=== PATIENT | male | born 1980 | race Caucasian/White ===

== ENCOUNTER 2021-03-22 15:26 | Outpatient (CLI) | payer BC, SELFPAY ==
--- NOTE | ~2021-03-22 | CT_ITS ---
EXAMINATION: CT abdomen pelvis w con EXAM DATE: 03/22/2021 16:44 INDICATION: Abdominal pain, appendicitis RT lower abd pain since 03/20/21. TECHNIQUE: Spiral CT of the abdomen and pelvis was performed following intravenous injection of 100 m L Omnipaque 350. Axial, coronal and sagittal images of the abdomen and pelvis were reviewed. The do se-length product (DLP) for this examination was 1710.55 mGy-cm. The exposure was tailored according to patient size (auto mA exposure control), and iterative reconstruction (ASIR) was used as addition al dose reduction technique. There is no prior study for comparison. FINDINGS: The liver, spleen, adrenal glands and pancreas are unremarkable. Gallbladder is unremarkab le. No biliary obstruction. Portal and splenic veins are patent. Kidneys enhance symmetrically. T here is no hydronephrosis. The prostate is unremarkable. The bladder is unremarkable. There is no retroperitoneal or pelvic lymphadenopathy. Small bilateral inguinal fat-containing hernias. The appendix is dilated up to 1.2 cm with moderate adjacent inflammation, but no abscess or perforati on suspected. Acute appendicitis. The stomach and small bowel are unremarkable. There is expected a mount of colonic stool. No free intraperitoneal gas. The heart is normal in size. There are no p ericardial or pleural effusions. The lung bases are unremarkable. The bones are unremarkable. IMPRESSION: Acute uncomplicated appendicitis. I discussed appendicitis with Rosmery Davidson NP at 03/22/2021 16:55 CDT. Reviewed, dictated and finalized at location A.
[2021-03-22 15:41] LABS: Basophils Absolute Auto 0.02 K/mm3 (0.00-0.10); Basophils Percent Auto 0.3 % (0.0-1.0); Eosinophils Absolute Auto 0.11 K/mm3 (0.02-0.50); Eosinophils Percent Auto 1.4 % (1.0-6.0); Hematocrit 39.5 % (40.0-54.0); Hemoglobin 13.7 g/dL (14.0-18.0); Immature Granulocyte Absolute 0.03 K/mm3 (0.00-0.00); Immature Granulocyte Percent A 0.4 % (0.0-0.0); Lymphocytes Absolute Auto 1.51 K/mm3 (1.10-4.50); Lymphocytes Percent Auto 19.8 % (18.0-42.0); Mean Corpuscular HGB Conc 34.7 g/dL (32.0-36.0); Mean Corpuscular Hemoglobin 32.6 pg (27.0-31.0); Mean Platelet Volume 9.4 fl (8.7-11.0); Monocytes Absolute Auto 0.89 K/mm3 (0.10-0.90); Monocytes Percent Auto 11.7 % (2.0-11.0); Neutrophils Absolute Auto 5.1 K/mm3 (1.7-7.2); Neutrophils Percent Auto 66.4 % (50.0-70.0); Platelet Count Result 187 K/mm3 (150-420); Red Cell Distribution Width 12.9 % (11.6-14.4); White Blood Count 7.6 K/mm3 (4.8-10.8)
[2021-03-22 16:00] LABS: Alanine Aminotransferase 57 U/L (16-63); Alkaline Phosphatase 55 U/L (46-116); Amylase 33 U/L (25-115); Anion Gap 10 mmol/L (8-16); Aspartate Amino Transferase 25 U/L (15-37); Bilirubin,Total 0.6 mg/dL (0.00-1.00); Blood Urea Nitrogen 10 mg/dL (7-18); Calcium 8.3 mg/dL (8.5-10.1); Carbon Dioxide 28 mmol/L (21-32); Chloride 104 mmol/L (98-108); Estimated Glomerular Filt Rate > 60; Glucose 97 mg/dL (70-99); Lipase 107 U/L (73-393); Osmolality Calculated 293 mOsm/kg (285-295); Potassium 3.9 mmol/L (3.5-5.1); Sodium 142 mmol/L (136-145); Total Protein 7.7 g/dL (6.4-8.2)
== END 2021-03-22 15:27 | disposition home or self-care (01) ==
PROVIDERS: PCP Internal Medicine; Visit Provider Nurse Practitioner Family
DX: K35.80 Unspecified acute appendicitis (principal); R10.9 Unspecified abdominal pain
CPT/HCPCS: 36415; 74177; 80053; 82150; 83690; 85025; Q9967

== ENCOUNTER 2021-03-22 18:06 | Observation (INO) | payer BC, SELFPAY ==
[2021-03-22] VITALS (7 sets, daily range): BP systolic 130–174; BP diastolic 60–114; PULSE 60–82; RESP 16–18; TEMP 36.1–36.9; O2SAT 98–100; BMI 43.4
--- NOTE | 2021-03-22 18:30 | ECG_ITS ---
Measurements Intervals [place] Rate: 75 P: 4 SD: 175 QRS: 1 QRSD: 117 T: 56 QT: 368 QTc: 413 Interpretive Statements SINUS RHYTHM INTRAVENTRICULAR CONDUCTION DELAY BASELINE WANDER- v3 BORDERLINE ECG Electronically Signed On 03-22-2021 20:24:03 CDT by Doyle Leyva D.O.
--- NOTE | 2021-03-22 18:31 | ED.ABDPAIN ---
HPI - Abdominal Pain General Chief Complaint: Abdominal Pain Stated Complaint: Positive CT of ABD at [facility] Time Seen by Provider: 03/22/21 18:20 Source: patient and RN notes reviewed Mode of arrival: ambulatory Limitations: no limitations History of Present Illness HPI narrative: This is a 41 year old male with history of hypertension who presents for evaluation of acute appendicitis. Patient developed right lower abdominal pain on Monday. He states his pain has been intermittent and he has not taken anything for pain. He was evaluated by his primary care provider who ordered outpatient CT abdomen and pelvis with labs. His outpatient CT shows uncomplicated appendicitis. He denies nausea, vomiting, fever or chills. He rates his pain 05/31. Related Data Home Medications Medication Instructions Recorded Confirmed losartan-hydrochlorothiazide tablet 03/22/21 Allergies Allergy/AdvReac Type Severity Reaction Status Date / Time No Known Allergies Allergy Unverified 10/17/15 23:23 Review of Systems Review of Systems: All systems reviewed & are unremarkable except as noted in HPI and below PMFSH Past Medical History Medical History (Updated 03/22/21 @ 19:14 by Erica Pierce MD) Hypertension Surgical History Surgical History (Updated 03/22/21 @ 18:36 by Erica Pierce MD) No significant past surgical history Social History Social History (Updated 03/22/21 @ 18:36 by Erica Pierce MD) Smoking status: Never smoker Alcohol intake: current Drinks per week: 24 Substance use: never Spiritual care concerns: No Exam Const: General: no acute distress and alert Orientation/consciousness: patient oriented x3 Eyes: EOM: EOMs intact bilaterally Chest: Chest palpation & inspection: normal inspection of the chest Resp: Effort & Inspection: normal respiratory effort and no retractions Auscultation: clear to auscultation bilaterally Cardio: Rate: regular rate Rhythm: regular rhythm Heart sounds: no murmurs GI: GI Palp: Yes Soft to palpation, Yes Tenderness to palpation present (GI) (RLQ) and No Guarding due to palpation present (GI) Auscultation: normal bowel sounds Back/Spine/Pelvis: Back: no CVA tenderness Skin: General skin exam: normal color Rashes: no rashes Neuro: General: patient oriented x3, moves all extremities and CN's II-XI intact bilaterally Extrem: General: normal to inspection Psych: Mental Status: mental status grossly normal Affect: normal affect Course Consultations Consultation #1: I Discussed case with Dr. Dudley and he accepts patient to service. Agrees with starting zosyn Date: 03/22/21 Time: 19:13 Vital Signs Vital signs: Vital Signs Temperature 98.4 F 03/22/21 18:29 Pulse Rate 70 03/22/21 18:29 Respiratory Rate 18 03/22/21 18:29 Blood Pressure 174/114 H 03/22/21 18:29 Pulse Oximetry 100 03/22/21 18:29 Temperature 97 F L 03/22/21 21:35 Pulse Rate 60 03/22/21 21:35 Respiratory Rate 18 03/22/21 21:35 Blood Pressure 130/60 03/22/21 21:35 Pulse Oximetry 98 03/22/21 21:35 MDM - Abdominal Pain Lab Data Attestation: I reviewed the patient's lab results. Discharge Plan Discharge Clinical Impression: Acute appendicitis Qualifiers: Acute appendicitis type: other Qualified Code(s): K35.890 - Other acute appendicitis without perforation or gangrene Patient Disposition: Still a Patient Condition: Stable
[2021-03-22] MEDS: LOSARTAN POTASSIUM 100 MG TABLET PO (19:27)
[2021-03-22] MEDS: SODIUM CHLORIDE 0.9% IV 1,000 ML 125 ML IV CONT (21:14)
--- NOTE | 2021-03-22 21:39 | PC.NURSE ---
This patient, Delfino Eaton, was admitted to Medical Room 348-01. Patient/family oriented to hospital policies and general routines including ID bracelet, bed and alarms, visiting hours, pain management, procedures, bathroom and other care routines, personal items, smoking policy, room service/diet, and visiting hours. Information on how to activate the Rapid Response Team has been discussed. Patient/Family are encouraged to report perceived risks to care and to ask questions if they do not understand what they are told or what they should do.
[2021-03-23] VITALS (14 sets, daily range): BP systolic 118–168; BP diastolic 60–97; PULSE 59–95; RESP 14–18; TEMP 36.1–37.2; O2SAT 94–100
[2021-03-23] MEDS: SODIUM CHLORIDE 0.9% IV 1,000 ML 125 ML IV CONT (05:08)
--- NOTE | 2021-03-23 08:54 | PM.IMHP ---
H&P: HPI History of Present Illness Date/Time: 03/23/21 08:54 Chief Complaint: Right lower quadrant pain Narrative: this is a 41-year-old man who presented to the emergency department last night with right lower quadrant pain that started 2 days prior. He states that he began having shooting lower abdominal pains on Monday and pain began progressing throughout the day. He thought about going to the emergency department Monday night, but was able to get some rest and Monday woke up feeling a little bit better. He then continued to have abdominal pain Monday and called his primary care physician on Monday morning. He was able to see his PCP in the morning and lab work and a CT scan was ordered. CT showed evidence of acute appendicitis, therefore he was directed to go to the emergency department. He denies any fevers or chills. He did state he felt a little warm yesterday. He denies any change in bowel habits. He denies any nausea or vomiting. He has never had any symptoms like this before. Review of Systems Review of Systems: All systems reviewed & are unremarkable except as noted in HPI and below Constitutional: Constitutional: Denies chills and Denies fever(s) Eyes: Eyes: Denies change in vision ENT: Denies hearing loss, Denies neck pain and Denies sore throat Cardiovascular: Cardiovascular: Denies chest pain and Denies dyspnea Respiratory: Respiratory: Denies cough, Denies dyspnea and Denies wheezing Gastrointestinal: Gastrointestinal: Reports as per HPI Genitourinary: Genitourinary: Denies hematuria and Denies dysuria Musculoskeletal: Musculoskeletal: Denies arthralgias, Denies joint swelling and Denies neck pain Allergic/Immunologic: Allergic/Immunologic: Denies wheezing [facility] Past Medical History Medical History (Updated 03/23/21 @ 09:01 by Kam Dudley DO) Hypertension Surgical History Surgical History No significant past surgical history Family History Family History (Updated 03/23/21 @ 08:58 by Kam Dudley DO) Father Hypertension Social History Social History Smoking status: Never smoker Alcohol intake: current Drinks per week: 24 Substance use: never Spiritual care concerns: No Meds Home Medications and Allergies Home Medications Medication Instructions Recorded Confirmed Type losartan-hydrochlorothiazide tablet 03/22/21 History Allergies Allergy/AdvReac Type Severity Reaction Status Date / Time No Known Allergies Allergy Unverified 10/17/15 23:23 Vital Signs Vital Signs - 24 hr 03/22/21 18:29 03/22/21 18:45 03/22/21 19:09 Temperature 36.9 C Pulse Rate 70 69 Respiratory Rate 18 16 Blood Pressure 174/114 H 148/88 H Pulse Oximetry 100 99 99 03/22/21 19:15 03/22/21 19:30 03/22/21 19:31 Temperature Pulse Rate 82 Respiratory Rate 16 Blood Pressure 138/87 Pulse Oximetry 98 98 98 03/22/21 21:35 03/23/21 05:59 03/23/21 08:44 Temperature 36.1 C L 36.4 C Pulse Rate 60 66 Respiratory Rate 18 17 Blood Pressure 130/60 148/79 H Pulse Oximetry 98 98 96 Exam Const: General: alert; No acute distress Orientation/consciousness: patient oriented x3 Limitations: no limitations HENMT: Head: normocephalic and atraumatic Ears: hearing grossly normal bilaterally General nose exam: Normal external nose present and Normal nares present Mouth: Yes Normal oral and palatal mucosa present and Yes moist mucous membranes Eyes: General: appearance normal, both eyes and all related structures Conjunctivae: conjunctivae normal Sclera: sclerae normal Pupils: Equal, round and reactive pupils present EOM: EOMs intact bilaterally Neck: Neck: normal visual inspection, full ROM, no lymphadenopathy, supple and no JVD Lymphatic: no lymphadenopathy noted Chest: Chest palpation & inspection: normal inspection of the
--- NOTE | 2021-03-23 13:36 | PC.NURSE ---
pt down in OR
[2021-03-23] MEDS: LACTATED RINGERS 1,000 ML 30 ML IV CONT (13:50)
--- NOTE | 2021-03-23 13:50 | WPDANESEPPF ---
Anes - Initial Pre Proc Eval Procedure: Operation Date: 03/23/21 14:30 Proposed Procedures p Laparoscopic Appendectomy - Kam Dudley DO Date/Time: 03/23/21 13:50 Surgeon: Kam Dudley DO Pre Op Diagnosis: Acute Appendicitis Patient Data Age: 41 Gender: M Height: 1.8 m Weight: 141.3 kg Last Vital Signs Temp 36.4 C 03/23/21 05:59 Pulse 66 03/23/21 05:59 Resp 17 03/23/21 05:59 BP 148/79 H 03/23/21 05:59 Pulse Ox 96 03/23/21 08:44 Allergies Allergy/AdvReac Type Severity Reaction Status Date / Time No Known Allergies Allergy Unverified 10/17/15 23:23 Home Medications Medication Instructions Recorded Confirmed Type losartan-hydrochlorothiazide tablet 03/22/21 History Patient hx anesthesia problems: none Family hx anesthesia problems: none Results Review: All pre-operative results and documents have been reviewed as part of the pre-operative evaluation. PMFSH Past Medical History Medical History Hypertension Surgical History Surgical History No significant past surgical history Family History Family History Father Hypertension Social History Social History Smoking status: Never smoker Alcohol intake: current Drinks per week: 24 Substance use: never Spiritual care concerns: No Anes - Eval Final PreProcedure Day of Procedure 03/23/21 13:50 Patient weight: morbidly obese Heart: regular rate and rhythm Lungs: clear to auscultation Airway: Mallampati scale class II Neurological: alert and oriented Last oral intake: >/= 8 hours ASA classification: III Emergent: yes Anesthetic plan: proceed Anesthesia type and monitoring: general ETT and standard monitoring Results Review: All pre-operative results and documents have been reviewed as part of the pre-operative evaluation. Informed Consent: The patient's anesthetic plan and its attendant risks and benefits were discussed with the patient/family/POA. Questions were solicited and answers provided to the satisfaction of the patient/family/POA.
--- NOTE | 2021-03-23 13:57 | WPDHPUPDATE1 ---
History and Physical Update Update Date/Time: 03/23/21 13:57 History and Physical has been reviewed, including an updated exam of the patient. There are NO changes in the patient's condition. Risks, benefits, and alternatives have been discussed and questions answered. Patient agrees to proceed with procedure.
[2021-03-23] MEDS: BUPIVACAINE HCL 0.5% PF 30 ML VIAL INFILTRATE (14:23)
--- NOTE | 2021-03-23 15:42 | W.PM.PROC2 ---
Procedure Note - Detailed Date of Procedure 03/23/21 Pre-op Diagnosis Acute Appendicitis Post-op Diagnosis other (Acute perforated appendicitis) Procedure Performed Laparoscopic appendectomy Surgeon Kam Dudley, Anesthesia general and local (0.5% bupivicaine with epinephrine) Indications This is a 41-year-old man who had presented to the emergency department last night with right lower quadrant pain for the past 3 days. His pain started in the lower abdomen and progressively worsened. He denied any fevers or chills. He had never experienced pain like this in the past. He had workup through his PCP which included CBC and CT of his abdomen and pelvis. He was noted to have a normal white blood count but CT showed evidence of acute appendicitis. He was then admitted through the emergency department and started on broad-spectrum IV antibiotics. Discussions were made with the patient about treatment options and decision was made to proceed with laparoscopic appendectomy, possible open. Findings Laparoscopic appendectomy was performed. The patient had a very indurated appendix with multiple adhesions around the appendix and mesoappendix. The appendix was very friable and tore with manipulation. The base of the appendix was very indurated and it was somewhat difficult to identify initially. With careful dissection I was able to eventually identify the base of the appendix. I was able to staple across the base of the appendix with a blue load stapler. I also used some hook electrocautery on part of the mesoappendix until I was able to come across the mesoappendix with a white stapler. The surgery was very technically difficult and took time to take all of the adhesions in induration down around the base of the appendix. I chose to place a drain along the right lower quadrant and pelvis to monitor for any further signs of infection. There did not appear to be any significant purulence drainage but the appendix did appear perforated. The total operating time was 76 minutes requiring about 60 minutes of careful adhesiolysis around the base of the appendix. The surgery was about twice as long as a straightforward laparoscopic appendectomy. Description of Procedure Procedure as well as risks, benefits, and alternatives were explained to the patient. The patient agreed to proceed. Written consent was obtained and placed in chart prior to procedure. The patient was brought back to surgical suite. He was placed supine on operating table. Time-out was done to confirm the patient and procedure. The patient was then intubated by the Anesthesia Department. His abdomen was prepped and draped in sterile fashion using chlorhexidine prep. A 5 mm incision was made just to the left of the patient's umbilicus and a 5 mm Optiview trocar was advanced through the abdominal layers under direct visualization. Once inside the peritoneal cavity, carbon dioxide insufflation was used to create a pneumoperitoneum. The camera was inserted and the abdomen was inspected. No immediate abnormalities were identified. The patient was then placed in slight Trendelenburg position and rotated to the left. A 5 mm incision was made in the suprapubic region in midline and a 5 mm trocar was inserted under direct visualization. A 12 mm incision was made in the left lower quadrant and a 12 mm trocar was inserted under direct visualization. The right lower quadrant was carefully inspected. The cecum was identified and then this was traced back to the appendix. The appendix was identified and grasped at the mesoappendix and lifted anteriorly. Careful blunt dissection was carried out at the base of the appendix through the mesoappendix using a [place] grasper. An Endo-ALICE 45 mm blue load stapler was then advanced across the base of the appendix and clamped and fired. A white reload was then clamped across the mesoappendix and fired. This freed up our appendix completely. It was then pl
[2021-03-23] MEDS: fentaNYL CITRATE INJ (*CRX) 100 MCG/2 ML VIAL 25 MCG IV PUSH ×2 (16:31→16:35)
--- NOTE | 2021-03-23 16:59 | SUR.PHASEI ---
1659 - dr. talbert at bedside talking with pt
[2021-03-23] MEDS: HYDROcodone/acetaminophen (*CRX) 10-325 MG TABLET 1 TAB PO (17:40)
[2021-03-23] MEDS: MORPHINE SULFATE (*CRX) 2 MG/ML INJ IV PUSH (18:30)
[2021-03-23] MEDS: MORPHINE SULFATE (*CRX) 4 MG/ML INJ IV PUSH (20:30)
[2021-03-23] MEDS: ONDANSETRON INJ 4 MG/2 ML VIAL IV PUSH (20:35)
[2021-03-24 03:02] VITALS: BP 111/57; PULSE 79; RESP 16; TEMP 36.7; O2SAT 94
[2021-03-24] MEDS: HYDROcodone/acetaminophen (*CRX) 10-325 MG TABLET 1 TAB PO ×2 (05:29→13:05)
[2021-03-24 05:37] LABS: Hematocrit 38.6 % (42.0-52.0); Hemoglobin 13.4 g/dL (14.0-18.0); Mean Corpuscular HGB Conc 34.7 g/dl (32-36); Mean Corpuscular Volume 95.1 fl (80-100); Mean Platelet Volume 9.1 fl (7.4-10.4); Platelet Count Result 211 k/mm3 (150-375); Red Blood Count 4.06 M/mm3 (4.6-6.20); Red Cell Distribution Width 13.1 % (11.5-14.5); White Blood Count 11.9 K/mm3 (4.5-10.0)
[2021-03-24 05:47] LABS: Anion Gap 11 mmol/L (8-16); Blood Urea Nitrogen 10 mg/dL (9-20); Calcium 8.5 mg/dL (8.4-10.2); Carbon Dioxide 23 mmol/L (22-30); Chloride 103 mmol/L (98-107); Estimated CRCL calculation 155 ml/min; Estimated Glomerular Filt Rate > 60; Glucose 152 mg/dL (65-110); Potassium 4.2 mmol/L (3.4-5.0); Sodium 137 mmol/L (137-145)
[2021-03-24 07:02] VITALS: BP 126/83; PULSE 73; RESP 18; TEMP 36.7; O2SAT 96
--- NOTE | 2021-03-24 09:24 | WPDANESPN ---
Anes - Prog Note Post-Op Date/Time: 03/24/21 09:24 Cardiovascular status: normal Respiratory status: normal Airway patency: baseline Mental status: baseline Post-Op hydration status: normal Vital Signs: Last Vital Signs Temp 36.7 C 03/24/21 07:02 Pulse 73 03/24/21 07:02 Resp 18 03/24/21 07:02 BP 126/83 03/24/21 07:02 Pulse Ox 96 03/24/21 07:02 Pain Score (VAS): 0 I/O: Intake & Output 03/23/21 03/24/21 03/24/21 23:59 07:59 15:59 Intake Total 200 50 120 Output Total 530 510 Balance -330 -460 120 Laboratory Tests 03/24/21 05:25 03/24/21 05:25 03/24/21 03/24/21 05:25 05:25 WBC 11.9 H RBC 4.06 L Hgb 13.4 L Hct 38.6 L MCV 95.1 MCH 33.0 MCHC 34.7 RDW 13.1 Plt Count 211 MPV 9.1 Sodium 137 Potassium 4.2 Chloride 103 Carbon Dioxide 23 Anion Gap 11 BUN 10 Creatinine 0.80 Estim Creat Clear Calc 155 Estimated GFR > 60 Glucose 152 H Calcium 8.5 Post-procedural complaints: none Patient Feedback: Patient satisfied with anesthetic care.
[2021-03-24] MEDS: HYDROcodone/acetaminophen (*CRX) 5-325 MG TABLET 1 TAB PO (09:52)
[2021-03-24] MEDS: ENOXAPARIN 40 MG/0.4 ML SYRINGE SUB-Q (09:53)
[2021-03-24 11:12] VITALS: BP 129/68; PULSE 80; RESP 18; TEMP 35.4; O2SAT 98
--- NOTE | 2021-03-24 13:16 | PM.DS ---
DS: Admitting Diagnosis Discharge Date 03/24/2021 Admitting Diagnosis acute appendicitis DS: Discharge Diagnosis Discharge Diagnosis (1) Acute perforated appendicitis: Code(s): K35.32 - Acute appendicitis with perforation and localized peritonitis, without abscess Status: Acute (2) Hypertension: Qualifiers: Hypertension type: primary hypertension Qualified Code(s): I10 - Essential (primary) hypertension Code(s): I10 - Essential (primary) hypertension Status: Acute (3) Adult BMI 40.0-44.9 kg/sq m: Code(s): Z68.41 - Body mass index [BMI] 40.0-44.9, adult Status: Acute DS: Summary Hospital Course Reason for hospitalization: acute appendicitis Hospital Course: this is a 41-year-old man who presented to the emergency department 03/22/2021 with right lower quadrant pain that started about 3 days prior. He saw his PCP on 03/22 and outpatient labs and a CT abdomen and pelvis was performed. His lab workup was normal, but CT showed evidence of inflammatory changes at the appendix. He was then referred to the emergency department for further treatment. Patient was admitted and started on IV Zosyn. On 03/23/2021 he underwent laparoscopic appendectomy. The appendix was very difficult to remove due to inflammatory reaction around the entire base of the appendix. The appendix also appeared to be perforated and tore easily with manipulation. A 19 round Jt drain was placed at the time of surgery. He was then returned to the surgical floor postoperatively and was continued on IV antibiotics. NATHANIEL drain remained serosanguineous. On postop day 1 he was remaining hemodynamically stable and pain control was improving. He was tolerating a regular diet and remained afebrile. NATHANIEL drain was removed before discharge. He was discharged on 03/24/2021. Status at Discharge Functional status at discharge: independent ambulation Overall status at discharge: patient is progressing back to baseline Time Spent with Patient Time attestation: Total time spent providing and/or coordinating discharge services: Time spent: Less than 30 minutes Exam Const: General: cooperative and no acute distress Orientation/consciousness: patient oriented x3 Resp: Effort & Inspection: normal respiratory effort Auscultation: clear to auscultation bilaterally Cardio: Rate: regular rate Rhythm: regular rhythm Heart sounds: S1 normal heart sound present and S2 normal heart sound present GI: Inspection: incision ( Intact with glue) and other ( NATHANIEL drain serosanguineous) GI Palp: Yes abdominal tenderness ( suprapubic around drain), Yes Soft to palpation and No Guarding due to palpation present (GI) Auscultation: normal bowel sounds DS: Data Data Completed and Pending Pending studies at discharge: Pending at discharge 03/23/21 14:15 Surgical [PTH] Routine Labs on day of discharge: Labs from last 24 hours 03/24/21 03/24/21 05:25 05:25 WBC 11.9 H RBC 4.06 L Hgb 13.4 L Hct 38.6 L MCV 95.1 MCH 33.0 MCHC 34.7 RDW 13.1 Plt Count 211 MPV 9.1 Sodium 137 Potassium 4.2 Chloride 103 Carbon Dioxide 23 Anion Gap 11 BUN 10 Creatinine 0.80 Estim Creat Clear Calc 155 Estimated GFR > 60 Glucose 152 H Calcium 8.5 Discharge Plan Discharge Attending physician on discharge: Kam Lyons Discharging Clinician: Kam Lyons Patient Disposition: Home, Self-Care Activity: other - see discharge instructions Diet: regular Wound Care Instructions: follow printed instructions Discharge Instructions: DISCHARGE INSTRUCTION SHEET FOR HERNIA, GALLBLADDER AND APPENDIX SURGERIES DR. LYONS PATIENT TO TAKE HOME 1. May shower in 24 hours, no soaking in bath x 2weeks. 2. Call office for: Wound increasingly painful or bleeding Vomiting Fever of greater than 101 degrees 3. If no bowel movement for three days, take 1 oz. (30
== END 2021-03-24 14:14 | disposition home or self-care (01) ==
LOC: ANHED 19:14 → ANH3MED 20:49
PROVIDERS: Admitting Provider Surgery; Emergency Provider General Practice; PCP Internal Medicine; Visit Provider Surgery
PROC: 0DTJ4ZZ Resection of Appendix, Percutaneous Endoscopic Approach (ICD-10-PCS; CPT 44970; principal; 2021-03-23 14:30)
DX: K35.30 Acute appendicitis with localized peritonitis, without perforation or gangrene (principal); I10 Essential (primary) hypertension
CPT/HCPCS: 44970; 36415; 80048; 85027; 88304; 93005; 96361; 96365; 99285; A9270; G0378; J0330; J1100; J1170; J1650; J2250; J2270; J2405; J2543; J2704; J2710; J3010; J7030; J7120

== ENCOUNTER 2022-03-15 07:21 | Outpatient (CLI) | payer BC, SELFPAY ==
[2022-03-15 07:34] LABS: Hematocrit 39.9 % (40.0-54.0); Mean Corpuscular HGB Conc 35.1 g/dL (32.0-36.0); Mean Corpuscular Hemoglobin 32.7 pg (27.0-31.0); Mean Corpuscular Volume 93.2 fL (78.0-102.0); Mean Platelet Volume 9.5 fl (8.7-11.0); Platelet Count Result 161 K/mm3 (150-420); Red Blood Count 4.28 M/mm3 (4.70-6.10); Red Cell Distribution Width 12.7 % (11.6-14.4)
[2022-03-15 08:01] LABS: Band Neutrophils Percent 0 % (0-6); Lymphocytes Absolute Manual 1.16 K/mm3 (1.1-4.5); Lymphocytes Percent Manual 29 % (18-44); Monocytes Absolute Manual 0.56 K/mm3 (0.1-0.90); Monocytes Percent Manual 14 % (3-9); Neutrophils Absolute Manual 2.28 K/mm3 (1.3-6.7); Neutrophils Percent Manual 57 % (46-73); Platelet Estimate Adequate (Adequate); Schistocytes None Seen (NORMAL); Total Cells Counted 100
[2022-03-15 08:34] LABS: Alanine Aminotransferase 53 U/L (16-63); Alkaline Phosphatase 48 U/L (46-116); Anion Gap 8 mmol/L (8-16); Aspartate Amino Transferase 24 U/L (15-37); Bilirubin,Total 0.5 mg/dL (0.00-1.00); Blood Urea Nitrogen 15 mg/dL (7-18); Calcium 8.3 mg/dL (8.5-10.1); Carbon Dioxide 29 mmol/L (21-32); Chloride 102 mmol/L (98-108); Cholesterol 180 mg/dL (0-200); Estimated Glomerular Filt Rate > 60; Free T4 Free Thyroxine 0.86 ng/dL (0.76-1.46); Glucose 98 mg/dL (70-99); HDL Direct 38 mg/dL (40-60); LDL Cholesterol Calculated 110 mg/dL (<130); Osmolality Calculated 288 mOsm/kg (285-295); Potassium 4.1 mmol/L (3.5-5.1); Sodium 139 mmol/L (136-145); Thyroid Stimulating Hormone 1.59 uIU/mL (0.36-3.74); Total Protein 7.2 g/dL (6.4-8.2); Triglycerides 159 mg/dL (0-150)
== END 2022-03-15 07:22 | disposition home or self-care (01) ==
LOC: CHSLAB 07:23
PROVIDERS: PCP Internal Medicine; Visit Provider Internal Medicine
DX: Z00.00 Encounter for general adult medical examination without abnormal findings (principal)
CPT/HCPCS: 36415; 80053; 80061; 84439; 84443; 85025

== ENCOUNTER 2024-11-13 15:35 | Outpatient (CLI) | payer OTHER, SELFPAY ==
[2024-11-13 16:02] LABS: Basophils Absolute Auto 0.03 K/mm3 (0.00-0.10); Basophils Percent Auto 0.4 % (0.0-1.0); Eosinophils Absolute Auto 0.13 K/mm3 (0.02-0.50); Eosinophils Percent Auto 1.7 % (1.0-6.0); Hematocrit 42.4 % (40.0-54.0); Hemoglobin 14.5 g/dL (14.0-18.0); Immature Granulocyte Absolute 0.03 K/mm3 (0.00-0.00); Immature Granulocyte Percent A 0.4 % (0.0-0.0); Lymphocytes Percent Auto 20.6 % (18.0-42.0); Mean Corpuscular HGB Conc 34.2 g/dL (32-36); Mean Corpuscular Hemoglobin 31.7 pg (27.0-31.0); Mean Corpuscular Volume 92.8 fL (78.0-102.0); Mean Platelet Volume 9.2 fl (8.7-11.0); Monocytes Absolute Auto 0.86 K/mm3 (0.10-0.90); Monocytes Percent Auto 11.1 % (2.0-11.0); Neutrophils Absolute Auto 5.12 K/mm3 (1.70-7.20); Neutrophils Percent Auto 65.8 % (50.0-70.0); Platelet Count Result 211 K/mm3 (150-420); Red Blood Count 4.57 M/mm3 (4.70-6.10); Red Cell Distribution Width 13.2 % (11.6-14.4); White Blood Count 7.8 K/mm3 (4.8-10.8)
[2024-11-13 16:04] LABS: Add Urine Microscopic? YES; Appearance Urine Clear (Clear); Bilirubin Urine Negative (Negative); Blood Urine 1+ (Negative); Color Urine Yellow (Yellow); Glucose Urine UA Trace (Negative); Ketones Urine Trace (Negative); Leukocyte Esterase Ur Negative LEU/UL (Negative); Nitrate Urine Negative (Negative); Protein Urine Negative (Negative); Specific Grav Ur 1.025 (1.010-1.020); Urobilinogen Urine 0.2 mg/dL (0.2-1.0)
[2024-11-13 16:18] LABS: Bacteria Urine Trace /hpf; RBC Urine 0-2 /hpf (0-2); Squamous Epithelial Cell Urine Rare /hpf (Few); WBC Urine 0-3 /hpf (0-3)
[2024-11-13 16:33] LABS: Alanine Aminotransferase 68 U/L (6-50); Albumin Level 4.5 g/dL (3.5-5.1); Alkaline Phosphatase 47 U/L (38-126); Anion Gap 4 mmol/L (4-12); Aspartate Amino Transferase 56 U/L (17-59); Bilirubin,Total 0.8 mg/dL (0.2-1.3); Blood Urea Nitrogen 13 mg/dL (9-20); Calcium 9.1 mg/dL (8.4-10.2); Carbon Dioxide 31 mmol/L (22-30); Chloride 106 mmol/L (98-107); Cholesterol 191 mg/dL (0-200); Creatine Kinase 152 U/L (55-170); Estimated Glomerular Filt Rate > 60; Glucose 105 mg/dL (65-110); HDL Direct 39 mg/dL; LDL Cholesterol Calculated 97 mg/dL (<130); Osmolality Calculated 292 mOsm/kg (285-295); Potassium 4.5 mmol/L (3.4-5.0); Sodium 141 mmol/L (137-145); Total Protein 7.4 g/dL (6.3-8.2); Triglycerides 274 mg/dL (<150); Uric Acid 8.7 mg/dL (3.5-8.5)
[2024-11-13 16:49] LABS: Free T3 4.21 pg/mL (2.18-3.98)
[2024-11-13 16:50] LABS: Free T4 Free Thyroxine 0.88 ng/dL (0.78-2.19)
== END 2024-11-13 15:36 | disposition home or self-care (01) ==
PROVIDERS: PCP Internal Medicine; Visit Provider Internal Medicine
DX: I10 Essential (primary) hypertension (principal); E78.2 Mixed hyperlipidemia; N39.0 Urinary tract infection, site not specified; E03.4 Atrophy of thyroid (acquired); E79.0 Hyperuricemia without signs of inflammatory arthritis and tophaceous disease
CPT/HCPCS: 36415; 80053; 80061; 81001; 82550; 84439; 84443; 84481; 84550; 85025